=== PATIENT | female | born 1990 | race American Indian/Alaskan Native ===

== ENCOUNTER 2016-11-17 20:50 | Emergency (ER) | payer MEDICAID ==
[2016-11-17 21:23] VITALS: BP 109/71
--- NOTE | 2016-11-17 22:02 | Emergency Department Report ---
Chief Complaint: Weakness Stated Complaint: LT SIDE NUMBNESS Time Seen by Provider: 11/17/16 21:56 - HPI History of Present Illness: 26-year-old -[place] female with no past medical history comes in for complaint of left-sided numbness been going on for 1 month. Patient reports that she feels her speech is getting slurred over the last couple days. She reports she has a headache no nausea no vomiting. - Exam Vital Signs: Vital Signs 11/17/16 21:19 Temperature 98.1 F Pulse Rate 104 H Respiratory 20 Rate Blood Pressure 109/71 O2 Sat by Pulse 100 Oximetry Physical Exam: He is alert and oriented 3 HEENT pupils are equal round react to light and accommodation EOMI intact, tongue protrusion with deviation to the right and left is intact, puff out the cheeks is symmetrical, mouth left-sided does not symmetrical with the right, shrugging that the shoulders intact gag reflex intact strength 4 out of 5 in all extremities [place] within normal limits heel down [place] within normal limits. Cardiovascular S1-S2 regular rate and rhythm respiratory clear dictation bilateral abdomen soft nontender nondistended bowel sounds throughout MSE screening note: Focused history and physical exam performed. Due to findings the following was ordered: CBC BMP serum test ordered. ED Disposition for MSE Condition: Stable Referrals: PRIMARY CARE, [Primary Care Provider] - 3-5 Days
[2016-11-17 22:51] LABS: Hematocrit 40.2 % (30.3-42.9); Hemoglobin 13.2 gm/dl (10.1-14.3); Mean Corpuscular HGB Conc 33 % (30-34); Mean Corpuscular Hemoglobin 29 pg (28-32); Mean Corpuscular Volume 89 fl (79-97); Platelet Count 219 K/mm3 (140-440); Red Blood Count 4.54 M/mm3 (3.65-5.03); Red Cell Distribution Width 12.8 % (13.2-15.2)
[2016-11-17 23:08] LABS: Anion Gap 18 mmol/L; Blood Urea Nitrogen 14 mg/dL (7-17); Calcium 8.9 mg/dL (8.4-10.2); Carbon Dioxide 25 mmol/L (22-30); Chloride 101.3 mmol/L (98-107); Glucose 97 mg/dL (65-100); Sodium 140 mmol/L (137-145)
--- NOTE | 2016-11-20 15:29 | ED Elopement Review ---
ED Pt Elopement review - Results review Lab results: Laboratory Tests 11/17/16 11/17/16 22:35 22:35 WBC 13.0 H RBC 4.54 Hgb 13.2 Hct 40.2 MCV 89 MCH 29 MCHC 33 RDW 12.8 L Plt Count 219 Sodium 140 Potassium 4.0 Chloride 101.3 Carbon Dioxide 25 Anion Gap 18 BUN 14 Creatinine 0.8 Estimated GFR > 60 BUN/Creatinine Ratio 17.50 Glucose 97 Calcium 8.9 - Call Back decision Pt Call Back Decision: No action required
== END 2016-11-18 04:26 | disposition left against medical advice (07) ==
LOC: ED 20:50
DX: R20.0 Anesthesia of skin (principal); R47.81 Slurred speech; Z53.21 Procedure and treatment not carried out due to patient leaving prior to being seen by health care provider
CPT/HCPCS: 36415; 80048; 85027